=== PATIENT | female | born 1935 | race Caucasian/White ===

== ENCOUNTER 2019-02-08 13:03 | Emergency (ER) | payer MEDICARE ==
[2019-02-08 14:13] LABS: PTT 37.7 SEC (22.9-36.1)
[2019-02-08 14:14] LABS: D-Dimer Test 0.87 *mcg/mL (0.27-0.43); INR-International Normal Ratio 1.8; Prothrombin Time 20.6 SEC (12.0-14.7)
[2019-02-08 14:16] LABS: ALT (SGPT) 52 U/L (8-55); AST (SGOT) 53 U/L (5-34); Albumin 3.8 g/dL (3.4-4.8); Alkaline Phosphatase 112 U/L (40-150); Anion Gap 17 mmol/L (10-20); BUN (Urea Nitrogen) 18 mg/dL (9.8-20.1); Bilirubin, Total 0.7 mg/dL (0.2-1.2); CK (CPK) 102 U/L (29-168); Calc. Creatinine Clearance 0 mL/min (70-130); Calcium 9.2 mg/dL (7.8-10.44); Carbon Dioxide 28 mmol/L (23-31); Chloride 94 mmol/L (98-107); Digoxin 0.38 ng/mL (0.8-2.0); Estimated GFR-MDRD 56; Globulin 3.2 g/dL (2.4-3.5); Glucose 205 mg/dL (83-110); Potassium 3.9 mmol/L (3.5-5.1); Sodium 135 mmol/L (136-145)
--- NOTE | 2019-02-08 14:18 | RAD ---
PA AND LATERAL VIEWS CHEST: HISTORY: Dyspnea. FINDINGS: Comparison is made with the exam of 01/12/2011. The heart size is normal. The right hemidiaphragm is elevated but stable. No focal areas of consoli dation, pneumothoraces, ashley pulmonary edema, or pleural effusions are seen. There are degenerative changes in the spine. IMPRESSION: No radiographic evidence of acute cardiopulmonary process. POS: C
[2019-02-08 14:24] LABS: Band 2 % (5-11); Hemoglobin 11.7 g/dL (12.0-16.0); Lymphocytes 15 % (21-51); MDiff Complete? YES; Mean Corpuscular HGB CONC 30.9 g/dL (32.0-36.0); Mean Corpuscular Hemoglobin 25.5 pg (27.0-31.0); Mean Corpuscular Volume 82.4 fL (78.0-98.0); Monocytes 12 % (0-10); Neutrophil 71 % (42-75); Platelet Count 236 thou/uL (130-400); Platelet Morphology Comment Appears Adequate; RBC Distribution Width 14.5 % (11.5-14.5); Red Blood Cell (RBC) Count 4.61 mill/uL (4.20-5.40); White Blood Cell (WBC) Count 6.4 thou/uL (4.8-10.8)
[2019-02-08 14:46] LABS: CKMB 0.9 ng/mL (0-6.6)
[2019-02-08] MEDS ORDERED: cefTRIAXone\\ROCEPHIN 1 GM VIAL ONE (15:15)
[2019-02-08] MEDS ORDERED: methylPREDNISolone Sod Succ/PF 125 MG/2 ML VIAL ONE (15:15)
[2019-02-08] MEDS ORDERED: Water For Inject, Bacteriostat 30 ML ONE (15:15)
[2019-02-08 15:48] LABS: Bilirubin Negative (Negative); Blood, Urine Moderate (Negative); Clarity Clear (Clear); Glucose, Urine (Dipstick) Negative (Negative); Leukocyte Small (Negative); Nitrite Negative (Negative); Protein, Urine (Dipstick) 100 mg/dL (Neg-Trace); Urobilinogen 0.2 mg/dL (0.2-1.0)
[2019-02-08 15:52] LABS: Bacteria/HPF Rare-Few HPF (None Seen); Squamous Epithelial 0-3 HPF (0-3)
== END 2019-02-08 16:32 | disposition short-term general hospital (02) ==
LOC: MADERS 13:03
DX: J20.9 Acute bronchitis, unspecified (principal); I48.2 Chronic atrial fibrillation; Z86.73 Personal history of transient ischemic attack (TIA), and cerebral infarction without residual deficits; Z79.899 Other long term (current) drug therapy; Z79.01 Long term (current) use of anticoagulants
CPT/HCPCS: 71046; 80053; 80162; 81003; 81015; 82550; 82553; 83880; 85025; 85379; 85610; 85730; 93005; 96374; 96375; J0696; J2930; J7620